=== PATIENT | male | born 1995 | race Caucasian/White ===

== ENCOUNTER 2018-05-04 06:44 | Day surgery (SDC) | payer OTHER ==
[2018-05-04] MEDS ORDERED: CEFAZOLIN 1 GM INJ (07:00)
[2018-05-04] MEDS ORDERED: ONDANSETRON 4 MG INJ (08:06)
[2018-05-04] MEDS ORDERED: PROPOFOL 40 ML (08:06)
[2018-05-04] MEDS ORDERED: MIDAZOLAM 1 MG/ML 2 ML INJ (08:06)
[2018-05-04] MEDS ORDERED: DEXAMETHASONE 4 MG/ML 1 ML INJ (08:06)
[2018-05-04] MEDS ORDERED: FENTAnyl 50 MCG/ML VIAL (08:06)
[2018-05-04] MEDS ORDERED: FAMOTIDINE 20 MG INJ (08:07)
[2018-05-04] MEDS ORDERED: FENTAnyl 50 MCG/ML VIAL IV ×2 (09:00)
[2018-05-04] MEDS ORDERED: ONDANSETRON 4 MG INJ IV ×2 (09:00→10:00)
[2018-05-04] MEDS ORDERED: DIPHENHYDRAMINE 50 MG INJ IV (09:00)
[2018-05-04] MEDS ORDERED: HYDROmorphONE 1 MG/5 ML IV SYRINGE IV ×2 (09:00)
[2018-05-04] MEDS ORDERED: OXYCODONE/ACETAMINOPHEN (5/325) TAB PO ×3 (09:00→10:00)
[2018-05-04] MEDS ORDERED: LABETALOL HCL 20MG INJ IV (09:00)
[2018-05-04] MEDS ORDERED: ALBUTEROL 0.083% (NEB) 2.5 MG/3 ML AMP HHN (09:00)
[2018-05-04] MEDS ORDERED: MEPERIDINE 25 MG INJ IV (09:00)
[2018-05-04] MEDS ORDERED: morphine (1 MG/ML) 10ML SYRINGE IV ×2 (09:00)
[2018-05-04] MEDS: BUPIVACAINE 0.25%/EPI (SDV) 10 ML INJ INJ (09:15)
[2018-05-04] MEDS ORDERED: KETOROLAC 30 MG INJ (09:27)
[2018-05-04] MEDS ORDERED: morphine 2 MG INJ IV (10:00)
[2018-05-04] MEDS: OXYCODONE/ACETAMINOPHEN (5/325) TAB PO (10:59)
== END 2018-05-04 11:17 | disposition home or self-care (01) ==
LOC: SDS 06:44
DX: C85.11 Unspecified B-cell lymphoma, lymph nodes of head, face, and neck (principal)
CPT/HCPCS: 38500; 88307; 88341; 88342